=== PATIENT | male | born 1970 | race Caucasian/White ===

== ENCOUNTER 2019-12-23 14:28 | Emergency (ER) | payer OTHER, SELFPAY ==
[2019-12-23] VITALS (7 sets, daily range): BP systolic 156–175; BP diastolic 98–110; PULSE 69–89; RESP 17–20; TEMP 36.9; O2SAT 94–99; BMI 28.7
--- NOTE | 2019-12-23 14:47 | EKG12_ITS ---
Test Reason : Blood Pressure : / mmHG Vent. Rate : 079 BPM Atrial Rate : 079 BPM P-R Int : 170 ms QRS Dur : 088 ms QT Int : 380 ms P-R-T Axes : 026 005 023 degrees QTc Int : 435 ms Normal sinus rhythm Normal ECG Confirmed by PONCE ABDI MD ([id number]), editor & co founder NEREYDA GILL ([id number] on 12/26/2019 1:06:11 PM Referred By: CL Confirmed By:PONCE ABDI MD
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
[2019-12-23 14:54] LABS: Absolute Lymphocyte Count 2.01 X10^3/uL (0.83-4.51); Absolute Neutrophil Count 4.2 X10^3/uL (2.0-7.7); Basophil# 0.04 X10^3/uL; Basophil% 0.6 % (0-1); Eosinophil# 0.13 X10^3/uL; Eosinophils% 1.9 % (0-5); Hematocrit 43.2 % (40-54); Hemoglobin 14.1 g/dL (13.0-16.5); Lymphocyte # 2.01 X10^3/ul (4.0); Lymphocyte % 28.9 % (19-41); Mean Corp Hgb Conc 32.6 g/dL (32-36); Mean Corpuscular Hgb 28.8 pg (27.0-32.0); Mean Corpuscular Volume 88.2 fL (80-94); Mean Platelet Vol. 11.4 fl (6.2-12.0); Monocyte# 0.53 X10^3/uL; Monocyte% 7.6 % (0-10); NRBC Flagged by Analyzer 0 % (0-5); Neutrophil # 4.21 X10^3/uL (2.7-7.7); Neutrophil % 60.4 % (47-70); Platelet Count 245 K/mm3 (150-450); RBC Distribution Width SD 39.1 fl (35.1-43.9)
[2019-12-23 15:06] LABS: Anion Gap 3 (5-15); BUN 16 mg/dL (7-18); BUN/Creat Ratio 16.5 RATIO (10-20); Calcium,Total 8.9 mg/dL (8.5-10.1); Chloride 107 mmol/L (98-107); Creatinine, Serum 0.97 mg/dL (0.70-1.30); EST Glomerular Filtration Rate 88 mL/min (>60); Est Glom Filt Rate - Afr Amer 107 mL/min (>60); Estimated Creatinine Clearance 118.65 ml/min; Glucose 157 mg/dL (74-106); Magnesium 1.9 mg/dL (1.6-2.6); Potassium 3.4 mmol/L (3.5-5.1); Sodium Level 140 mmol/L (136-145)
[2019-12-23] MEDS: Aspirin 81 MG TAB.CHEW 324 MG PO (17:52)
== END 2019-12-23 23:21 | disposition short-term general hospital (02) ==
PROVIDERS: Emergency Provider Emergency Medicine; PCP Physician Assistant
DX: Z04.1 Encounter for examination and observation following transport accident (principal); R55 Syncope and collapse; R07.9 Chest pain, unspecified; V89.2XXA Person injured in unspecified motor-vehicle accident, traffic, initial encounter; Y93.9 Activity, unspecified; Y92.410 Unspecified street and highway as the place of occurrence of the external cause; Y99.8 Other external cause status; I10 Essential (primary) hypertension; E78.5 Hyperlipidemia, unspecified; Z87.891 Personal history of nicotine dependence
CPT/HCPCS: 70450; 71275; 80048; 83735; 84484; 85025; 93005; 99285; Q9967

== ENCOUNTER 2019-12-27 16:48 | Emergency (ER) | payer OTHER, SELFPAY ==
[2019-12-23 14:29] VITALS: BMI 28.7
[2019-12-27 16:50] VITALS: BP 140/102; PULSE 78; RESP 16; TEMP 36.3; O2SAT 97; BMI 28.8
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
[2019-12-27 17:48] VITALS: BMI 28.8
[2019-12-27 17:51] VITALS: BP 148/92
[2019-12-27 17:58] LABS: Absolute Lymphocyte Count 2.11 X10^3/uL (0.83-4.51); Absolute Neutrophil Count 4.2 X10^3/uL (2.0-7.7); Basophil# 0.03 X10^3/uL; Basophil% 0.4 % (0-1); Eosinophil# 0.17 X10^3/uL; Eosinophils% 2.5 % (0-5); Hematocrit 44.6 % (40-54); Hemoglobin 14.6 g/dL (13.0-16.5); Lymphocyte # 2.11 X10^3/ul (4.0); Lymphocyte % 30.4 % (19-41); Mean Corp Hgb Conc 32.7 g/dL (32-36); Mean Corpuscular Volume 88.5 fL (80-94); Monocyte# 0.45 X10^3/uL; Monocyte% 6.5 % (0-10); NRBC Flagged by Analyzer 0 % (0-5); Neutrophil # 4.15 X10^3/uL (2.7-7.7); Neutrophil % 59.9 % (47-70); Platelet Count 234 K/mm3 (150-450); RBC Distribution Width SD 38.6 fl (35.1-43.9); Red Blood Count 5.04 M/mm3 (4.6-6.2); White Blood Count 6.9 K/mm3 (4.4-11.0)
[2019-12-27 18:16] LABS: ALB/GLOB Ratio 1.1 RATIO (0.9-2.4); AST(SGOT) 58 U/L (15-37); Alanine Aminotransfer ALT/SGPT 113 U/L (16-61); Albumin, Serum 3.9 g/dL (3.2-5.0); Alkaline Phosphatase 56 U/L (45-117); Anion Gap 5 (5-15); BUN 21 mg/dL (7-18); BUN/Creat Ratio 20.8 RATIO (10-20); Calcium,Total 9.1 mg/dL (8.5-10.1); Chloride 106 mmol/L (98-107); Creatinine, Serum 1.01 mg/dL (0.70-1.30); EST Glomerular Filtration Rate 84 mL/min (>60); Est Glom Filt Rate - Afr Amer 102 mL/min (>60); Estimated Creatinine Clearance 113.95 ml/min; Globulin 3.5 g/dL (2.2-4.2); Glucose 153 mg/dL (74-106); Potassium 3.6 mmol/L (3.5-5.1); Protein, Total 7.4 g/dL (6.4-8.2); Sodium Level 138 mmol/L (136-145)
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
[2019-12-27 20:11] VITALS: BP 151/94
== END 2019-12-27 20:12 | disposition home or self-care (01) ==
PROVIDERS: Emergency Provider Emergency Medicine; PCP Physician Assistant
DX: H53.8 Other visual disturbances (principal); E11.9 Type 2 diabetes mellitus without complications; I10 Essential (primary) hypertension; M54.2 Cervicalgia; K21.9 Gastro-esophageal reflux disease without esophagitis; F17.220 Nicotine dependence, chewing tobacco, uncomplicated
CPT/HCPCS: 70450; 80053; 85025; 99283; A4216

== ENCOUNTER 2021-12-19 10:39 | Day surgery (SDC) | payer OTHER, SELFPAY ==
--- NOTE | 2021-12-18 08:07 | EKG12_ITS ---
Test Reason : PRE OP Blood Pressure : / mmHG Vent. Rate : 078 BPM Atrial Rate : 078 BPM P-R Int : 174 ms QRS Dur : 088 ms QT Int : 376 ms P-R-T Axes : 011 047 028 degrees QTc Int : 428 ms Normal sinus rhythm Normal ECG Confirmed by ALFREDO MARTIN, ALMA ([id number]), video editor KRYSTA MULLINS ([id number]) on 12/20/2021 8:02:11 AM Referred By: Juan Antonio Segovia Confirmed By:ALMA FUENTES MD
[2021-12-18 08:41] LABS: Hematocrit 44.2 % (40-54); Hemoglobin 14.6 g/dL (13.0-16.5); Mean Corpuscular Hgb 29.4 pg (27.0-32.0); Mean Corpuscular Volume 88.9 fL (80-94); Mean Platelet Vol. 11.1 fl (6.2-12.0); Platelet Count 225 K/mm3 (150-450); RBC Distribution Width CV 12.1 % (11.6-14.6); RBC Distribution Width SD 39.5 fl (35.1-43.9); Red Blood Count 4.97 M/mm3 (4.6-6.2); White Blood Count 7.1 K/mm3 (4.4-11.0)
[2021-12-18 09:07] LABS: Anion Gap 5 (5-15); BUN 21 mg/dL (7-18); BUN/Creat Ratio 18.8 RATIO (10-20); Calcium,Total 9.5 mg/dL (8.5-10.1); Chloride 102 mmol/L (98-107); Creatinine, Serum 1.12 mg/dL (0.70-1.30); EST Glomerular Filtration Rate 74 mL/min (>60); Est Glom Filt Rate - Afr Amer 90 mL/min (>60); Glucose 155 mg/dL (74-106); Potassium 3.8 mmol/L (3.5-5.1); Sodium Level 138 mmol/L (136-145)
[2021-12-18 09:21] LABS: Hemoglobin A1c 7.5 % (3.8-5.6)
[2021-12-19] VITALS (9 sets, daily range): BP systolic 119–160; BP diastolic 78–95; PULSE 60–97; RESP 14–18; TEMP 36.2–36.7; O2SAT 92–100; BMI 28.7
[2021-12-19] MEDS: Lactated Ringers 1,000 ML 15 ML IV ×3 (11:15→15:00)
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
[2021-12-19 11:40] LABS: Bedside Glucose 106 mg/dL (74-106)
[2021-12-19] MEDS: Cefazolin 2 GM in 0.9% Normal Saline 100 ML IV (11:56)
--- NOTE | 2021-12-19 14:50 | OP.PCM_ITS ---
Report of Operation Date of Procedure: 12/19/21 Pre-Operative Diagnosis: Umbilical hernia Post-Operative Diagnosis: Nonincarcerated umbilical hernia Surgery/Procedure Performed:: Robot-assisted umbilical hernia repair with mesh Surgeon: Juan Antonio Segovia senior geotechnical engineer: Bari Espinoza Type of Anesthesia: General/Supplemental Anesthesiologist: Ish Markham Specimen's removed: NA Drains: NA Estimated Blood Loss (mL): 10 Description of Procedure: After appropriate identification in the preoperative holding area, the patient was brought to the operating room suite where he was positioned supine the operating table. Preoperative antibiotics were administered. Patient was then induced with a general anesthetic. Patient had not voided prior to the operating room so a Mayberry catheter was placed using sterile technique. Patient's abdomen was prepped and draped in the usual sterile fashion. A formal timeout followed to confirm patient and procedure. Procedure was begun with a Veress entry at Laboy's point. Once the set point pressure was reached, this Veress needle was exchanged for an optical trocar and an optical entry was made in this location. Laparoscopic investigation revealed no inadvertent injury to the viscera below. 2 additional 8 mm robotic trochars were placed along the abdominal wall laterally taking care to avoid the bony prominences of the costal margin and the ASIS. A transversus abdominis plane block was created with 0.25% bupivacaine under laparoscopic vision as these ports were placed. The robot was then brought in and docked in standard fashion. Robotically a peritoneal flap was raised approximately 2 cm medial from my trochars and carried this away towards the contralateral abdominal wall. Great care was taken to lower the peritoneum off of the posterior rectus sheath and avoid any rents in the peritoneal flap. Perforating vessels were sealed with bipolar energy to maintain hemostasis as this flap dissection proceeded. I then addressed the hernia directly by opening the scar tissue about the hernia sac and carefully applying manual traction downward until the hernia was fully reduced. The flap was then further dissected laterally until it appeared we had adequate width. The hernia defect was closed with a #1 stratafix suture by running the fascial defect closed and then running the suture back upon itself. Next a 10 x 15 ventralalight mesh was introduced into the peritoneum and a 3-0 V-Loc suture was used to chandelier the mesh. This V-Loc suture was then run towards the operating side of the opening and the needle was then removed. A 3-0 Vicryl suture was then used to loosely tacked the mesh in the cephalad direction as well as reinforce the proximal side of the mesh against the abdominal wall. Distally against the right abdominal sidewall the mesh was tucked nicely into the preperitoneal pocket and did not appear to be mobile. Lastly the peritoneum was closed with 2x3-0 Vicryl V-Loc sutures in a bidirectional fashion overlapping in the middle. The robot was then undocked and the trocars were removed. Additional local anesthetic was instilled and the port sites were closed with interrupted 4-0 Monocryl in subcuticular fashion. Steri-Strips and OpSite dressings were applied. Patient's Mayberry catheter was then removed the patient was awoken from general anesthetic. Patient was transferred to PACU for ongoing care. Complications None Admit VTE Documentation VTE Present on Admission: Yes VTE Mechan Device Prophylaxis: SCD's
[2021-12-19] MEDS: Bupivacaine 0.25% 30 ML Vial (14:55)
--- NOTE | 2021-12-19 15:02 | DCINST_ITS ---
Discharge Instructions Diet Discharge Diet: No restrictions Activity Discharge Activity: May Not Drive (No driving while using narcotic pain medication) Ice area for (Minutes): 20 Lifting Restrictions: No lifting greater than 10 pounds for the next 6 weeks Dressing / Incision Call your doctor if your incision/area has: Continuous Slow Oozing, Sudden Increased Bleeding, Increased Pain/ Swelling, Increased Redness and Swelling at the incision site Call your doctor if you observe: Fever of 101 or Higher Remove Dressing in: 1 day (Please leave Steri-Strips intact until they fall off spontaneously or are taken off at your follow-up visit) Follow Up Care Please Follow Up With: Juan Antonio Segovia MD When: 10 days Test Results: Test results from this visit will be discussed in further detail at your follow- up appointment, if applicable. Discharge Plan Admission Primary Reason for Your Visit: Umbilical hernia repair Attending Provider: Juan Antonio Segovia Primary Care Provider: Karon Carranza Discharge Orders/Prescriptions Prescriptions: New oxycodone 5 mg capsule 5 mg PO Q6H PRN (Reason: pain) 5 Days Qty: 14 0RF No Action ibuprofen 800 mg tablet 800 mg PO Q6H PRN (Reason: Pain) sildenafil 100 mg tablet 100 mg PO DAILY PRN (Reason: Erectile Dysfunction) Rx Instructions: administer 30 minutes to 4 hours before activity lisinopril-hydrochlorothiazide 20-12.5 mg tablet 1 tab PO DAILY Trulicity 1.5 mg/0.5 mL pen injector 1.5 mg subcut JAMA atorvastatin 10 MG tablet 10 mg PO DAILY omeprazole 20 MG capsule 20 mg PO DAILY Other Ambulatory Orders: 12 Lead EKG (Routine) Timeframe: 20211218 Location: None Selected Ordered By: Dr. Ish Markham Referrals / Follow Up: Karon Carranza PA [Primary Care Provider] - Disposition Disposition (needs filled in before D/C Order can be placed): Home, Self Care
[2021-12-19 16:15] LABS: Bedside Glucose 152 mg/dL (74-106)
[2021-12-19] MEDS: oxyCODONE 5 MG Tablet PO (16:30)
[2021-12-19] MEDS: Acetaminophen 500 MG Tablet 1000 MG PO (16:47)
[2021-12-19 18:45] LABS: Bedside Glucose 115 mg/dL (74-106)
== END 2021-12-19 19:40 | disposition home or self-care (01) ==
LOC: SDC 10:50 → AC 10:51
PROVIDERS: Anesthesiology; PCP Physician Assistant; Referring Provider Surgery; Visit Provider Surgery
PROC: (CPT 49652; principal; 2021-12-19 12:15)
DX: K42.9 Umbilical hernia without obstruction or gangrene (principal); E11.9 Type 2 diabetes mellitus without complications; K21.9 Gastro-esophageal reflux disease without esophagitis; E78.5 Hyperlipidemia, unspecified; I10 Essential (primary) hypertension; M54.9 Dorsalgia, unspecified; G89.29 Other chronic pain; Z87.891 Personal history of nicotine dependence; Z79.899 Other long term (current) drug therapy; Z79.84 Long term (current) use of oral hypoglycemic drugs
CPT/HCPCS: 49652; S2900; 00840; 36415; 80048; 82962; 83036; 85027; 93005; J7120; C1781; J2405

== ENCOUNTER 2022-03-01 13:59 | Emergency (ER) | payer OTHER, SELFPAY ==
[2022-03-01 14:00] VITALS: BP 130/89; PULSE 87; RESP 16; TEMP 36.6; O2SAT 100; BMI 28.0
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
--- NOTE | 2022-03-01 14:49 | RAD_ITS ---
STUDY: X-RAY - LEFT HAND THUMB REASON FOR EXAM: Male, 51 years old. Injury/Pain TECHNIQUE: 3 view(s) of the thumb were obtained. COMPARISON: None. FINDINGS: An acute comminuted fracture of the neck to the base of the proximal phalanx of the thumb is present with mild displacement and extension into the articular surface. The surrounding soft tissues are mildly swollen. Normal first metacarpus. Normal metacarpophalangeal joint of the thumb. Normal interphalangeal joints. RAD/Finger(s) Min 2 Views IMPRESSION: Acute comminuted fracture of the proximal phalanx of the thumb. Electronically Signed: Christoph Carballo MD at 15:43 EDT ,
[2022-03-01] MEDS: HYDROcodone Bitartrate/Apap 5/325 Tablet PO (14:56)
[2022-03-01] MEDS: Cephalexin 250 MG Capsule 500 MG PO (17:21)
[2022-03-01 18:25] VITALS: RESP 16
== END 2022-03-01 18:31 | disposition home or self-care (01) ==
PROVIDERS: Emergency Provider Emergency Medicine; PCP Physician Assistant; Visit Provider Emergency Medicine
DX: S62.512A Displaced fracture of proximal phalanx of left thumb, initial encounter for closed fracture (principal); E11.9 Type 2 diabetes mellitus without complications; I10 Essential (primary) hypertension; Z87.891 Personal history of nicotine dependence; E78.5 Hyperlipidemia, unspecified; W22.09XA Striking against other stationary object, initial encounter
CPT/HCPCS: 73140; 99283